=== PATIENT | female | born 1980 | race Asian ===

== ENCOUNTER 2020-01-07 01:23 | Emergency (ER) | payer MEDICAID ==
[~2020-01-07] VITALS: Ht 147.3 cm; Wt 39.9 kg
[2020-01-07] MEDS ORDERED: DICYCLOMINE HCL LIQ 10 MG/5 ML UDC PO ONE (01:45)
[2020-01-07] MEDS ORDERED: MAG HYDROX/AL HYDROX/SIMETH 30 ML LIQUID UDC PO ONE (01:45)
[2020-01-07] MEDS ORDERED: IV NORMAL SALINE 1000 ML BAG IV ONE (01:45)
--- NOTE | 2020-01-07 01:45 | NUR ---
Patient BIB boyfriend/ for c/o mid-abdominal pain for a few days. A/Ox4. Speech is clear, speaks in complete sentences. No acute neuro deficits. Respiratory even and unlabored, no cough no sob. Denies any cp, palpitations, no acute cardiovascular distress. Denies any n/v/d, or any gu distress at this time. Patient in bed at lowest position, sr upx2, call light within reach. Fall precautions implemented per protocol.
[2020-01-07] MEDS ORDERED: MAG HYDROX/AL HYDROX/SIMETH 30 ML LIQUID UDC ONE (01:46)
[2020-01-07] MEDS ORDERED: DICYCLOMINE HCL LIQ 10 MG/5 ML UDC ONE (01:47)
[2020-01-07 01:51] LABS: BASOPHILS # (AUTO) 0.1 K/uL (0.0-8.0); BASOPHILS % (AUTO) 0.8 % (0.0-2.0); EOSINOPHILS % (AUTO) 0.5 % (0.0-7.0); HEMATOCRIT 43.2 % (31.2-41.9); HEMOGLOBIN 14.2 g/dL (10.9-14.3); LYMPHOCYTES # (AUTO) 1.4 K/uL (20.0-40.0); LYMPHOCYTES % (AUTO) 22.4 % (20.5-51.5); MEAN CORPUSCULAR HEMOGLOBIN 28.1 uug (24.7-32.8); MEAN CORPUSCULAR HGB CONC 33 g/dL (32.3-35.6); MEAN CORPUSCULAR VOLUME 85.4 fL (75.5-95.3); MONOCYTES # (AUTO) 0.4 K/uL (2.0-10.0); MONOCYTES % (AUTO) 6.9 % (0.0-11.0); NEUTROPHILS # (AUTO) 4.3 K/uL (1.8-8.9); NEUTROPHILS % (AUTO) 69.4 % (38.5-71.5); PLATELET COUNT (AUTO) 288 K/uL (179-408); RED BLOOD CELL COUNT(AUTO) 5.06 MIL/uL (3.63-4.92); WHITE BLOOD COUNT (AUTO) 6.1 K/uL (3.8-11.8)
[2020-01-07 02:03] LABS: CARBON DIOXIDE 27 mmol/L (21-32); CHLORIDE 102 mmol/L (98-107); CREATININE 0.7 mg/dL (0.6-1.3); GLUCOSE 120 mg/dL (74-106); POTASSIUM 3.8 mmol/L (3.5-5.1); UREA NITROGEN, BLOOD 5 mg/dL (7-18)
[2020-01-07 02:08] LABS: ALANINE AMINOTRANSFERASE 16 U/L (14-59); ALKALINE PHOSPHATASE 75 U/L (50-136); ASPARTATE AMINOTRANSFERASE 14 U/L (15-37); BILIRUBIN,DIRECT 0.2 mg/dL (0.0-0.2); BILIRUBIN,TOTAL 0.5 mg/dL (0.2-1.0); LIPASE 110 U/L (73-393); TOTAL PROTEIN, SERUM 8.3 g/dL (6.4-8.2)
--- NOTE | 2020-01-07 02:49 | NUR ---
Patient back in room from CT
[2020-01-07] MEDS ORDERED: MAGNESIUM CITRATE 296 ML BOTTLE PO ONE (03:15)
[2020-01-07] MEDS ORDERED: MAGNESIUM HYDROXIDE 30 ML LIQUID UDC PO ONE (03:15)
[2020-01-07] MEDS ORDERED: MAGNESIUM HYDROXIDE 30 ML LIQUID UDC ONE (03:28)
[2020-01-07] MEDS ORDERED: MAGNESIUM CITRATE 296 ML BOTTLE ONE (03:29)
[2020-01-07 03:30] VITALS: BP 148/52
--- NOTE | 2020-01-07 03:30 | NUR ---
Patient discharged to home in stable condition. Written and verbal after care instructions given. Patient verbalizes understanding of instructions. Stressed follow up or return to ER for worsening s/s. Patient ambulated with stable gait.
== END 2020-01-07 03:31 | disposition home or self-care (01) ==
LOC: ER 01:30
DX: K59.00 Constipation, unspecified (principal)
CPT/HCPCS: 36415; 83690; 85025; 85730; A4663; J7030

== ENCOUNTER 2024-04-07 16:06 | Emergency (ER) | payer MEDICAID, OTHER ==
[~2024-04-07] VITALS: Ht 144.8 cm; Wt 39.9 kg
[2024-04-07 17:52] LABS: BASOPHILS % (AUTO) 0.6 % (0.0-2.0); EOSINOPHILS # (AUTO) 0.1 K/uL (0.0-0.7); HEMATOCRIT 36.3 % (31.2-41.9); HEMOGLOBIN 11.9 g/dL (10.9-14.3); LYMPHOCYTES % (AUTO) 14.3 % (20.5-51.5); MEAN CORPUSCULAR HEMOGLOBIN 27.1 uug (24.7-32.8); MEAN CORPUSCULAR HGB CONC 33 g/dL (32.3-35.6); MONOCYTES # (AUTO) 0.9 K/uL (0.1-1.30); MONOCYTES % (AUTO) 13.1 % (0.0-11.0); NEUTROPHILS # (AUTO) 4.7 K/uL (1.8-8.9); PLATELET COUNT (AUTO) 336 K/uL (179-408); RED BLOOD CELL COUNT(AUTO) 4.38 MIL/uL (3.63-4.92); RED CELL DISTRIBUTION WIDTH 13.2 % (12.3-17.7); WHITE BLOOD COUNT (AUTO) 6.6 K/uL (3.8-11.8)
[2024-04-07 17:54] LABS: DIFFERENTIAL COMMENT 1
[2024-04-07 17:59] LABS: CALCIUM 8.9 mg/dL (8.5-10.1); CREATININE 0.6 mg/dL (0.6-1.3); POTASSIUM 3.2 mmol/L (3.5-5.1)
[2024-04-07 18:10] LABS: ALBUMIN 2.9 g/dL (3.4-5.0); BILIRUBIN,DIRECT 0.2 mg/dL (0.0-0.2); TOTAL PROTEIN, SERUM 7.5 g/dL (6.4-8.2)
[2024-04-07 18:30] LABS: BILIRUBIN,TOTAL 0.5 mg/dL (0.2-1.0)
[2024-04-07] MEDS ORDERED: POTASSIUM BICARBONATE/CIT AC 25 MEQ TABLET.EFF ONE ×2 (18:37→18:38)
[2024-04-07] MEDS: POTASSIUM BICARBONATE/CIT AC 25 MEQ TABLET.EFF PO ONE (18:40)
[2024-04-07] MEDS ORDERED: PRED20TA PO (18:51)
[2024-04-07] MEDS ORDERED: DOXY100T2 PO (18:51)
[2024-04-07] MEDS ORDERED: ALBU8.5H8 INH (18:51)
[2024-04-07] MEDS ORDERED: BUDE10.22 INH (18:51)
[2024-04-07] MEDS ORDERED: predniSONE 20 MG TABLET ONE (18:56)
[2024-04-07] MEDS ORDERED: DOXYCYCLINE HYCLATE 100 MG TABLET ONE (18:58)
[2024-04-07] MEDS ORDERED: GUAIFENESIN/DEXTROMETHORPHAN 5 ML UDC ONE (18:58)
[2024-04-07] MEDS: predniSONE 20 MG TABLET PO ONE (19:01)
[2024-04-07] MEDS: DOXYCYCLINE HYCLATE 100 MG TABLET PO ONE (19:02)
[2024-04-07] MEDS: GUAIFENESIN/DEXTROMETHORPHAN 5 ML UDC PO ONE (19:02)
[2024-04-07] MEDS ORDERED: KETOROLAC TROMETHAMINE 30 MG INJ ONE (19:17)
[2024-04-07 19:38] VITALS: BP 128/72; TEMP 97.6; O2SAT 100
== END 2024-04-07 19:39 | disposition home or self-care (01) ==
LOC: ER 16:06
DX: J20.9 Acute bronchitis, unspecified (principal); J44.0 Chronic obstructive pulmonary disease with (acute) lower respiratory infection; F17.210 Nicotine dependence, cigarettes, uncomplicated; Z20.822 Contact with and (suspected) exposure to COVID-19
CPT/HCPCS: 99284; 71045; 87426; 87804 ×2; 80076; 80048; 83880; 85025; 36415; J7512; A4606; A4663; J1885

== ENCOUNTER 2025-04-19 02:34 | Emergency (ER) | payer OTHER ==
[~2025-04-19] VITALS: Ht 144.8 cm; Wt 40.8 kg
[~2025-04-19 02:34] MED LIST: ALBU8.5H8 INH; BUDE10.22 INH; DOXY100T2 PO; PRED20TA PO
[2025-04-19] MEDS ORDERED: ALBU18HF2 INH (03:05)
[2025-04-19] MEDS ORDERED: AZIT250T13 PO (03:05)
[2025-04-19] MEDS ORDERED: BUDE10.2 INH (03:05)
[2025-04-19] MEDS: AZITHROMYCIN 250 MG TABLET PO ONE (03:19)
[2025-04-19 03:44] LABS: PLATELET COUNT (AUTO) 265 K/uL (179-408); RED BLOOD CELL COUNT(AUTO) 4.31 MIL/uL (3.63-4.92); RED CELL DISTRIBUTION WIDTH 13.4 % (12.3-17.7); WHITE BLOOD COUNT (AUTO) 12.3 K/uL (3.8-11.8)
[2025-04-19] MEDS: IV NS 1000 ML 1,000 ML IV PRN (03:45)
[2025-04-19 03:49] LABS: CREATININE 0.7 mg/dL (0.6-1.3); UREA NITROGEN, BLOOD 10.0 mg/dL (7-18)
[2025-04-19 03:54] LABS: SODIUM SERUM 137.0 mmol/L (136-145)
[2025-04-19] MEDS ORDERED: IOHEXOL 300MG/ML 100 ML INFUS..BTL ONE (04:06)
[2025-04-19] MEDS ORDERED: SWABABLE VALVE TRANSFER SET EA MC ONE (04:07)
[2025-04-19] MEDS ORDERED: IV NORMAL SALINE 250 ML IV ONE (04:07)
[2025-04-19] MEDS ORDERED: CEFTRIAXONE /D5W 50ML IVPB **ER PYXIS IV ONE (06:05)
[2025-04-19] MEDS ORDERED: POTASSIUM CHLORIDE 20 MEQ TAB.PRT.SR ONE (10:55)
[2025-04-19] MEDS: POTASSIUM CHLORIDE 20 MEQ TAB.PRT.SR PO ONE (11:00)
[2025-04-19 12:00] VITALS: BP 97/68; O2SAT 99
== END 2025-04-19 12:22 | disposition short-term general hospital (02) ==
LOC: ER 02:42
DX: J20.9 Acute bronchitis, unspecified (principal); J18.9 Pneumonia, unspecified organism; F17.210 Nicotine dependence, cigarettes, uncomplicated; Z79.51 Long term (current) use of inhaled steroids; Z79.52 Long term (current) use of systemic steroids
CPT/HCPCS: 99285; 96365; 71260; 71045; 96361; 80048; 85025; 85651; 36415; J0696; Q9967; J7040; A4606; A4663